=== PATIENT | male | born 1985 | race Caucasian/White ===

== ENCOUNTER 2021-02-19 23:53 | Emergency (ER) | payer MEDICAID ==
[2021-02-20] MEDS ORDERED: Alum Hydrox/Mag Hydrox/Simeth 15 ML, Lidocaine 2% 15 ML PO ONE ×2 (00:36)
--- NOTE | 2021-02-20 00:38 | EDM.PDOC ---
ED HPI GENERAL MEDICAL PROBLEM - General Chief Complaint: Abdominal Pain Stated Complaint: ABDOMINAL PAIN Time Seen by Provider: 02/20/21 00:31 Source of Information: Reports: Patient, RN Notes Reviewed History Limitations: Reports: No Limitations - History of Present Illness INITIAL COMMENTS - FREE TEXT/NARRATIVE: 35-year-old gentleman presents emergency department day complaint of abdominal pain, he states in the epigastric region just came on earlier this evening, he has had gas pains in the past before. No history of abdominal surgeries had pizza for lunch today and bowl cereal for dinner. No shortness of breath no nausea vomiting no diaphoresis no chest pain Epigastric Pain Score (Numeric/FACES): 7 - Related Data Allergies Allergy/AdvReac Type Severity Reaction Status Date / Time Penicillins Allergy Airway Verified 02/20/21 00:17 Tightness Home Meds: Home Meds Simethicone [Gas-X] 125 mg PO ASDIRECTED 02/20/21 [History] Past Medical History HEENT History: Reports: Impaired Vision - Infectious Disease History Infectious Disease History: Reports: Chicken Pox Social & Family History - Tobacco Use Tobacco Use Status *Q: Current Every Day Tobacco User Years of Tobacco use: 23 Packs/Tins Daily: 0.3 - Caffeine Use Caffeine Use: Reports: Coffee, Soda - Recreational Drug Use Recreational Drug Use: No ED ROS GENERAL - Review of Systems Review Of Systems: See Below Constitutional: Reports: No Symptoms HEENT: Reports: No Symptoms Respiratory: Reports: No Symptoms Cardiovascular: Reports: No Symptoms GI/Abdominal: Reports: Abdominal Pain. Denies: Constipation, Diarrhea, Nausea, Vomiting ED EXAM, GI/ABD - Physical Exam Exam: See Below Exam Limited By: No Limitations General Appearance: Alert, WD/WN, No Apparent Distress Respiratory/Chest: No Respiratory Distress, Lungs Clear, Normal Breath Sounds, No Accessory Muscle Use, Chest Non-Tender Cardiovascular: Regular Rate, Rhythm, No Murmur GI/Abdominal Exam: Normal Bowel Sounds, Soft, Tender (Epigastric region) Course - Vital Signs Last Recorded V/S: Last Vital Signs Temp 97.4 F 02/20/21 00:20 Pulse 84 02/20/21 00:20 Resp 16 02/20/21 00:20 BP 131/92 H 02/20/21 00:20 Pulse Ox 98 02/20/21 00:20 - Orders/Labs/Meds Orders: Active Orders 24 hr Category Date Time Status Abdomen 1V Upright [CR] Urgent Exams 02/20/21 00:35 Taken Famotidine [Pepcid] Med 02/20/21 01:51 Once 20 mg PO ONETIME ONE ED GI Medications Reflex [OM.PC] Click to Edit Oth 02/20/21 01:51 Ordered Labs: Laboratory Tests 02/20/21 02/20/21 02/20/21 Range/Units 00:45 00:45 00:45 WBC 8.9 (4.5-11.0) K/uL RBC 5.03 (4.30-5.90) M/uL Hgb 15.1 H (12.0-15.0) g/dL Hct 45.1 (40.0-54.0) % MCV 90 (80-98) fL MCH 30 (27-31) pg MCHC 34 (32-36) % Plt Count 221 (150-400) K/uL Neut % (Auto) 79.4 H (36-66) % Lymph % (Auto) 15.1 L (24-44) % Kane % (Auto) 5.2 (2-6) % Eos % (Auto) 0.1 L (2-4) % Baso % (Auto) 0.2 (0-1) % Sodium 143 (140-148) mmol/L Potassium 3.9 (3.6-5.2) mmol/L Chloride 105 (100-108) mmol/L Carbon Dioxide 27 (21-32) mmol/L Anion Gap 11.1 (5.0-14.0) mmol/L BUN 14 (7-18) mg/dL Creatinine 1.1 (0.8-1.3) mg/dL Est Cr Clr Drug Dosing 103.91 mL/min Estimated GFR (MDRD) > 60 (>60) Glucose 148 H (74-106) mg/dL Lactic Acid 0.9 (0.4-2.0) mmol/L Calcium 9.4 (8.5-10.1) mg/dL Total Bilirubin 0.6 (0.2-1.0) mg/dL AST 21 (15-37) U/L ALT 41 (12-78) U/L Alkaline Phosphatase 82 (46-116) U/L Troponin I (0.000-0.056) ng/mL Total Protein 8.0 (6.4-8.2) g/dL Albumin 4.0 (3.4-5.0) g/dL Globulin 4.0 H (2.3-3.5) g/dL Albumin/Globulin Ratio 1.0 L (1.2-2.2) 02/20/21 Range/Units 00:45 WBC (4.5-11.0) K/uL RBC (4.30-5.90) M/uL Hgb (12.0-15.0) g/dL Hct (40.0-54.0) % MCV (80-98) fL MCH (27-31) pg MCHC (32-36) % Plt Count (150-400) K/uL Neut % (Auto) (36-66) % Lymph % (Auto) (24-44) % Kane % (Auto) (2-6) % Eos % (Auto) (2-4) % Baso % (Auto) (0-1) % Sodium (140-148) mmol/L Potassium (3.6-5.2) mmol/L Chloride (100-108) mmol/L Carbon Dioxide (21-32) mmol/L Anion Gap (5.0-14.0) mmol/L BUN (7-18) mg/dL Creatinine (0.8-1.3) mg/dL Est Cr Clr Drug Dosing mL/min Estimated GFR (MDRD) (>60) Glucose (74-106) mg/dL Lactic Acid (0.4-2.0) mmol/L Calcium (8.5-10.1) mg/dL Total Bilirubin (0.2-1.0) mg/dL AST (15-37) U/L ALT (12-78) U/L Alkaline Phosphatase (46-116) U/L Troponin I < 0.017 (0.000-0.056) ng/mL Total Protein (6.4-8.2) g/dL Albumin (3.4-5.0) g/dL Globulin (2.3-3.5) g/dL Albumin/Globulin Ratio (1.2-2.2) Meds: Medications Discontinued Medications Generic Name Dose Route Start Last Admin Trade Name Freq PRN Reason Stop Dose Admin Al Hydroxide/Mg Hydroxide 15 0 ml 02/20/21 00:36 11/16/21 00:46 ml/ Lidocaine HCl 15 ml PO 02/20/21 00:37 15 ml ONETIME ONE Administration Departure - Departure Time of Disposition: 01:53 Disposition: Home, Self-Care 01 Condition: Fair Clinical Impression: GERD (gastroesophageal reflux disease) Qualifiers: Esophagitis presence: esophagitis presence not specified Qualified Code(s): K21.9 - Gastro-esophageal reflux disease without esophagitis - Discharge Information Instructions: Gastroesophageal Reflux Disease, Adult Referrals: Kang Jacob MD [Primary Care Provider] - Forms: ED Department Discharge Additional Instructions: Tried [id number] medications for antacid relief, please followup with your primary care provider in 3-5 days if not better, please call return to the emergency department with worsening of symptoms. Sepsis Event Note (ED) - Evaluation Sepsis Screening Result: No Definite Risk - Focused Exam Vital Signs: Vital Signs Temp Pulse Resp BP Pulse Ox 02/20/21 00:20 97.4 F 84 16 131/92 H 98 - My Orders Last 24 Hours: My Active Orders 02/20/21 00:35 Abdomen 1V Upright [CR] Urgent 02/20/21 01:51 Famotidine [Pepcid] 20 mg PO ONETIME ONE ED GI Medications Reflex [OM.PC] Click to Edit - Assessment/Plan Last 24 Hours: My Active Orders 02/20/21 00:35 Abdomen 1V Upright [CR] Urgent 02/20/21 01:51 Famotidine [Pepcid] 20 mg PO ONETIME ONE ED GI Medications Reflex [OM.PC] Click to Edit Plan: Assessment Acuity = acute Site and laterality = epigastric abdominal pain Etiology = probable underlying gastroesophageal reflux disease Manifestations = none Location of injury = Home Lab values = CBC, CMP, troponin all within normal limits plain film of the abdom en reveals stool and gas nonspecific pattern Plan Good relief with the GI cocktail provided he was given Pepcid prior to discharge home he will try [id number] antacids follow-up with his primary care 3 to 5 days if not better This note was dictated using [employer] voice recognition software please call with any questions on syntax or grammar.
[2021-02-20] MEDS ORDERED: Famotidine 20 MG Tab PO ONE (01:51)
--- NOTE | 2021-02-22 09:34 | CR ---
Abdomen 1V Upright CLINICAL HISTORY: Abdominal pain FINDINGS: No free air is identified. Small intestinal configuration is nonacute. There is gas and feces throughout the colon. There is question of some lucent gallstones IMPRESSION: Nonacute intestinal gas pattern Possible gallstones. This should be correlated with ultrasound
== END 2021-02-20 02:00 | disposition home or self-care (01) ==
LOC: JP.ED 23:53
DX: K21.9 Gastro-esophageal reflux disease without esophagitis (principal); Z88.0 Allergy status to penicillin; Z72.0 Tobacco use
CPT/HCPCS: 36415; 74018; 80053; 83605; 84484; 85025; 99284; A9270